=== PATIENT | female | born 1965 | race Caucasian/White ===

== ENCOUNTER 2023-03-01 10:53 | Outpatient (AMB) | payer OTHER, SELFPAY ==
[2023-03-01 10:56] VITALS: BP 136/82; PULSE 96; RESP 18; TEMP 35.9; O2SAT 96; BMI 45.4
--- NOTE | 2023-03-01 10:56 | MHC.OFFVIS ---
Intake Vital Signs 03/01/23 10:56 Height 5 ft 4 in Weight 264 lb 5.348 oz BMI 45.4 BP 136/82 Blood Pressure Location Lt brachial Position Sitting Respiration 18 Pulse 96 Pulse Source Pulse Oximeter Temp 96.6 F L Temp Source Skin Pulse Oximetry (%) 96 Oxygen Delivery Method Room Air Intake Visit Reasons: Osteoarthritis It Application Development Manager Required: No Allergies chloramphenicol Adverse Reaction (Unknown, Verified 03/01/23 11:02) Swelling meperidine [From Demerol] Adverse Reaction (Unknown, Verified 03/01/23 11:02) Fever Penicillins Adverse Reaction (Unknown, Verified 03/01/23 11:02) Rash sulfamethoxazole [From Bactrim] Adverse Reaction (Unknown, Verified 03/01/23 11:02) Anaphylaxis trimethoprim [From Bactrim] Adverse Reaction (Unknown, Verified 03/01/23 11:02) Anaphylaxis Medication List - Last Reconciled 03/01/23 by Maria Teresa Joya RN albuterol sulfate 90 mcg/actuation 2 puffs inhalation QID PRN atorvastatin 20 mg PO DAILY clobetasol 0.05% 1 appl topical BID lisinopril 10 mg PO DAILY HPI HPI Comments History of Present Illness Details The patient presents for evaluation of a positive JORGE ALBERTO. In June of last year she developed some pain and redness in the right eye. This was eventually diagnosed as episcleritis. Topical corticosteroid drops were administered and the symptoms subsided. There was concern about a rheumatic disease that could be accompany the episcleritis. I had seen her in the past and she had occasional injections for lateral epicondylitis. She also had some painful swelling in the right knee with non inflammatory fluid and MRI and radiographic findings suggesting early osteoarthritis. The right knee is painful when she stands or walks quite a long time but only occasionally swells. She takes ibuprofen for it [id number], perhaps 200-400 mg a day. In the past few months there has been some stiffness in the fingers noted in the morning as well as occasional pain in the shoulders. These are not bad enough to require any medication. In the last year she has also developed a slightly itchy eruption on the skin. This has been over the MCPs, between the fingers, patches on the elbows, and in the ear canal. She did see Dermatology and it is getting better with clobetasol. She says a biopsy was done and it was equivocal as to whether it was psoriasis or eczema. [facility] Medical History JORGE ALBERTO positive Hypercholesteremia Hypertension Lateral epicondylitis of elbow Primary osteoarthritis of both knees Surgical History H/O mammogram Hx of cholecystectomy S/P right knee arthroscopy Family History Mother Diabetes Hypertension Multiple sclerosis Glaucoma Maternal Grandmother Diabetes Coronary artery disease Paternal Grandmother Diabetes Social History Alcohol intake: current Alcohol intake frequency: a few times a week Alcohol type: wine Patient Tobacco Use Status: Former Tobacco user Quit Date: 1998 Review of Systems Const Details: Negative for appetite change, weight change, fever, chills, malaise and fatigue Eyes Details: Episode of episcleritis on the right as noted above. Negative for vision change, dry eyes,headaches and dizziness ENT Details: Negative for hearing change, tinnitus, oral ulcer, nose bleeds and oral dryness. Card Details: Negative chest pain, edema and syncope Resp Details: She has a history of asthma sometimes accompany a URI but has not needed albuterol inhaler in quite some time. Presently negative for SOB, cough and wheezing GI Details: Negative indigestion/heartburn, nausea, abdominal pain, bowel changes, diarrhea, constipation and bloody stool. Details: Negative for dysuria, hematuria, nocturia, decreased force/flow and genital discharge Skin/Breast Details: Patches of itchy skin as noted above. Negative for hives, Raynaud's symptoms, sun sensitivity, and skin cancer Neuro Details: Negative for epilepsy, palsy, stroke, changes in speech, tingling and weakness Psych Details: Negative for anxiety, depression and stress Endo Details: Negative for polyuria and polydypsia Emile/Lymph Details: Negative for excessive bruising or bleeding. Physical Exam Vital Signs: Last Vital Signs Temp 96.6 F L 03/01/23 10:56 Pulse 96 03/01/23 10:56 Resp 18 03/01/23 10:56 BP 136/82 03/01/23 10:56 Pulse Ox 96 03/01/23 10:56 Oxygen Delivery Method Room Air 03/01/23 10:56 BMI result Body Mass Index 45.4 APPEARANCE: Patient in no acute distress EYES no redness, pupils equal and reactive to light, eyelids normal. No temporal artery tenderness, redness or swelling. EARS: External ear normal, canal clear and tympanic membrane normal. No sinus tenderness. NOSE/SINUS: Airflow through both nares, no nasal discharge, no bleeding THROAT: Oral mucosa moist, no ulcerations NECK: No thyromegaly or masses, no adenopathy, trachea midline. HEART: Regulrar rhythm, S1-S2 heard, no murmurs, rubs or gallops. LUNG: Clear to percussion and auscultation ABD: Normal bowel sounds, no organomegaly, masses or tenderness. EXTREMITIES: No edema, no calf tenderness, normal peripheral pulses. NEURO: Oriented and alert x3. No focal weakness. Reflexes symmetric. Gait normal. SKIN: There are a few excoriated patches of skin on the olecranon areas. This some dryness and flaking between the fingers in the hands around the MCP joint. There are no facial lesions. Elsewhere no inflammatory or neoplastic lesions. She has some ridging of the nails but no subungual deposits, abnormal cuticles, or pitting of the nails. JOINT EXAM:?? Cervical Spine:? Full range of motion without pain; no tenderness. Thoracic Spine:? No scoliosis.? No tenderness on palpation. Lumbar Spine:.? Alignment normal.? Full range of motion with slight discomfort at the extremes of motion. No tenderness. Chest Wall:? No tenderness, swelling, increased warmth or erythema. Hands: Left: Normal pain-free range of motion. There is some nodularity to the dorsum of the 2nd PIP. This is not tender however. Other joints are without tenderness, swelling, increased warmth or erythema. No thenar atrophy or sensory loss. Right: Normal pain-free range of motion. No areas of tenderness or swelling. No thenar atrophy or sensory loss. Wrists:.? Normal pain-free range of motion without tenderness, swelling, increased warmth or erythema. Elbows:. Normal pain-free range of motion without tenderness, swelling, increased warmth or erythema. Shoulders:.?? Full range of motion without pain. No tenderness, weakness, swelling, increased warmth or erythema. Hips:.? Full range of motion without pain. Hip bursa:.? No tenderness. Knees:.?? Right: Normal pain-free range of motion with some minimal medial compartment tenderness but no effusion, redness or warmth. There is some mild patellofemoral crepitus. Left: Normal pain-free range of motion without tenderness, swelling, increased warmth or erythema.? There is no effusion or crepitation Ankles:.? Normal pain-free range of motion without tenderness, swelling, increased warmth or erythema. Feet:.? Normal pain-free range of motion. There is some mild bony enlargement at the 1st MTP joints. These are not tender. No other areas of tenderness, swelling, increased warmth or erythema. Tender points:.? No tenderness to digital palpation at the occiput, trapezius, second rib, lateral epicondyle, knees, greater trochanter and gluteal area bilaterally. ? Results Reviewed Results Reviewed: Lab work from [place]: 02/20/2023: ESR 48, Lyme disease antibody negative, transaminases normal, creatinine 0.83, JORGE ALBERTO positive at 1:320, nucleolar pattern, rheumatoid factor negative Assessment & Plan Assessment & Plan (1) Primary osteoarthritis of both knees: Code(s): M17.0 - Bilateral primary osteoarthritis of knee (2) Episcleritis: Code(s): H15.109 - Unspecified episcleritis, unspecified eye (3) JORGE ALBERTO positive: Code(s): R76.8 - Other specified abnormal immunological findings in serum Plan The patient has had an episode of self-limited episcleritis in one eye. She is JORGE ALBERTO positive which raises the question of an autoimmune disorder. Around the time of this inflammation her sed rate was elevated. Since then, now almost 7 months out she has had no further episodes. She has a few arthralgias in the hands possibly related to early interphalangeal joint OA. She has known OA in the right knee. So far exam and symptoms do not suggest an underlying rheumatic disease. She does have the skin lesions which could be psoriasis. Psoriasis could be related to inflammatory eye disease. I will check into the JORGE ALBERTO with more specific blood work for lupus and also check ANCA for question of vasculitis. We will repeat the acute phase reactants. I will get back to her with the results of her studies but most likely just tell her to return if her of joint symptoms change in the future. Orders: Orders C Reactive Protein Today R76.8 - Other specified abnormal immunological findings in serum Protein Creatinine Ratio, Ur Today R76.8 - Other specified abnormal immunological findings in serum Complete Blood Count Auto Diff Today R76.8 - Other specified abnormal immunological findings in serum Erythrocyte Sedimentation Rate Today R76.8 - Other specified abnormal immunological findings in serum ANCA Vasculitides Today R76.8 - Other specified abnormal immunological findings in serum Anti DNA DS Antibody Today R76.8 - Other specified abnormal immunological findings in serum Anti Extractable Nuclear Ag Today R76.8 - Other specified abnormal immunological findings in serum Coding Level of Care Code New Pt Level 3 (65826) Diagnoses Primary osteoarthritis of both knees M17.0 Episcleritis H15.109 JORGE ALBERTO positive R76.8
== END 2023-03-01 11:53 | disposition home or self-care (01) ==
PROVIDERS: PCP Internal Medicine; Visit Provider Internal Medicine Rheumatology
DX: M17.0 Bilateral primary osteoarthritis of knee (principal); H15.109 Unspecified episcleritis, unspecified eye; R76.8 Other specified abnormal immunological findings in serum
CPT/HCPCS: 99203

== ENCOUNTER → 2023-03-01 10:53 | Outpatient (BNVA) | payer SELFPAY | PROVIDERS: Visit Provider Internal Medicine Rheumatology ==

== ENCOUNTER 2023-03-01 11:56 | Outpatient (REF) | payer OTHER, SELFPAY ==
[2023-03-01 13:30] LABS: MANUAL DIFF FLAG NO
[2023-03-01 13:39] LABS: Basophils Percent Auto 0.4 % (0-2); Eosinophils Absolute Auto 1.1 X10*3/uL (0.0-0.4); Eosinophils Percent Auto 11.1 % (0-4); Hematocrit 43.4 % (37.0-47.0); Hemoglobin 15.1 g/dl (12.0-16.0); Imm Gran Abs Auto 0.05 X10*3/uL (0.00-0.03); Imm Gran Pct Auto 0.5 % (0.0-0.4); Lymphocytes Absolute Auto 2.4 X10*3/uL (1.2-4.9); Lymphocytes Percent Auto 23.4 % (20-40); Mean Corpuscular HGB Conc 34.8 g/dl (31.0-35.0); Mean Corpuscular Volume 91.9 fL (80.0-98.0); Monocytes Absolute Auto 0.6 X10*3/uL (0.1-1.2); Monocytes Percent Auto 6.3 % (2-11); Neutrophils Percent Auto 58.3 % (45-73); Platelet Count 301 X10*3/uL (160-400); Red Blood Count 4.72 X10*6/uL (4.20-5.50); Red Cell Distribution Width 13.1 % (11.0-16.0); White Blood Count 10.2 X10*3/uL (4.8-10.8)
[2023-03-01 13:47] LABS: C Reactive Protein 2.41 mg/dL (< or = 0.50)
[2023-03-01 14:19] LABS: Erythrocyte Sedimentation Rate 22 MM/HR (0-20)
[2023-03-01 14:51] LABS: Creatinine Urine 57.42 mg/dL; Total Protein Urine Random < 7 mg/dL (<12)
[2023-03-03 11:29] LABS: Anti DNA DS Antibody <1 IU/mL; Myeloperoxidase Antibody <1.0 AI; Proteinase 3 PR3 Antibodies <1.0 AI; SM/Ribonucleoprotein Ab <1.0 NEG AI (<1.0 NEG); Smith Protein <1.0 NEG AI (<1.0 NEG)
== END 2023-03-01 11:57 | disposition home or self-care (01) ==
LOC: HO.10HDL 11:56
PROVIDERS: Visit Provider Internal Medicine Rheumatology
DX: R76.8 Other specified abnormal immunological findings in serum (principal)
CPT/HCPCS: 36415; 84156; 85025; 85652; 86021; 86140; 86225; 86235

== ENCOUNTER 2023-06-26 13:37 | Outpatient (AMB) | payer OTHER, SELFPAY ==
[2023-06-26 13:38] VITALS: BP 137/80; PULSE 99; TEMP 36.1; O2SAT 96; BMI 48.2
--- NOTE | 2023-06-26 13:38 | A.OFFVIS_ITS ---
Intake Vital Signs 06/26/23 13:38 Height 5 ft 4 in Weight 280 lb 10.375 oz BMI 48.2 BP 137/80 Blood Pressure Location Rt radial Pulse 99 Pulse Source Pulse Oximeter Temp 97 F Temp Source Skin Pulse Oximetry (%) 96 Oxygen Delivery Method Room Air Intake Visit Reasons: Positive antinuclear antibody Intake Note: Patient presents today to follow up on op joint pains. Last seen by Dr. Crowe 03/01/23. Allergies chloramphenicol Adverse Reaction (Unknown, Verified 06/26/23 13:44) Swelling meperidine [From Demerol] Adverse Reaction (Unknown, Verified 06/26/23 13:44) Fever Penicillins Adverse Reaction (Unknown, Verified 06/26/23 13:44) Rash sulfamethoxazole [From Bactrim] Adverse Reaction (Unknown, Verified 06/26/23 13:44) Anaphylaxis trimethoprim [From Bactrim] Adverse Reaction (Unknown, Verified 06/26/23 13:44) Anaphylaxis Medication List - Last Reconciled 06/26/23 by Adrián Crowe MD albuterol sulfate 90 mcg/actuation 2 puffs inhalation QID PRN atorvastatin 20 mg PO DAILY clobetasol 0.05% 1 appl topical BID lisinopril 10 mg PO DAILY loteprednol etabonate 0.5% (Lotemax) ophthalmic (eye) PRN HPI HPI Comments History of Present Illness Details The patient returns for evaluation of her elevated CRP in the face of an episode of episcleritis about a year ago. She has had no return of those symptoms. She says what was most helpful was a corticosteroid topically used for her eyelids given by the line camera operator. She does not seem to have any further episodes of redness or pain in the eye. She does have some right knee pain, attributed to osteoarthritis. This knee pain is worse with more standing and walking. I had given her previous corticosteroid injections in that region, the last was about 2 years ago. Occasionally with extra physical activity the knee does swell. She does take ibuprofen for this, usually about 400 mg 2 to 3 times a day with some benefit. There are no apparent side effects with it. She occasionally has some skin rashes elsewhere thought to be eczema. [facility] Medical History JORGE ALBERTO positive Hypercholesteremia Hypertension Lateral epicondylitis of elbow Primary osteoarthritis of both knees Surgical History S/P right knee arthroscopy H/O mammogram Hx of cholecystectomy Family History Mother Diabetes Hypertension Multiple sclerosis Glaucoma Maternal Grandmother Diabetes Coronary artery disease Paternal Grandmother Diabetes Social History Alcohol intake: current Alcohol intake frequency: a few times a week Alcohol type: wine Patient Tobacco Use Status: Former Tobacco user Quit Date: 1998 Review of Systems Const Details: Negative for appetite change, weight change, fever, chills, malaise and fatigue Eyes Details: Negative for vision change, dry eyes,headaches and dizziness ENT Details: Negative for hearing change, tinnitus, oral ulcer, nose bleeds and oral dryness. Card Details: Negative chest pain, edema and syncope Resp Details: Asthma symptoms seem control with current regimen. Negative for SOB, cough and wheezing GI Details: Negative indigestion/heartburn, nausea, abdominal pain, bowel changes, diarrhea, constipation and bloody stool. Emile/Lymph Details: Negative for excessive bruising or bleeding. Physical Exam Vital Signs: Last Vital Signs Temp 97 F 06/26/23 13:38 Pulse 99 06/26/23 13:38 BP 137/80 06/26/23 13:38 Pulse Ox 96 06/26/23 13:38 Oxygen Delivery Method Room Air 06/26/23 13:38 BMI result Body Mass Index 48.2 APPEARANCE: Patient in no acute distress EYES no redness, pupils equal and reactive to light, eyelids normal NOSE/SINUS: Airflow through both nares, no nasal discharge, no bleeding THROAT: Oral mucosa moist, no ulcerations NECK: No thyromegaly or masses, no adenopathy, trachea midline. HEART: Regulrar rhythm, S1-S2 heard, no murmurs, rubs or gallops. LUNG: Clear to percussion and auscultation ABD: Normal bowel sounds, no organomegaly, masses or tenderness. EXTREMITIES: No edema, no calf tenderness, normal peripheral pulses. SKIN: No inflammatory or neoplastic lesions. Normal color and turgor JOINT EXAM:?? Cervical Spine:? Full range of motion without pain; no tenderness. Thoracic Spine:? No scoliosis.? No tenderness on palpation. Lumbar Spine:.? Alignment normal.? Full range of motion with slight discomfort at the extremes of motion. No tenderness. Chest Wall:? No tenderness, swelling, increased warmth or erythema. Hands: Right: Normal pain-free range of motion. There is some firm nodularity to the dorsum of the 2nd PIP and the thumb IP joints. These areas are not tender however. Other joints are without tenderness, swelling, increased warmth or erythema. No thenar atrophy or sensory loss. Left: Normal pain-free range of motion. There is a suggestion of nontender bony enlargement at the PIP joints and the IP of the thumb. No triggering, soft tissue swelling, thenar atrophy or sensory loss. Wrists:.? Normal pain-free range of motion without tenderness, swelling, increased warmth or erythema. Elbows:. Normal pain-free range of motion without tenderness, swelling, increased warmth or erythema. Shoulders:.?? Full range of motion without pain. No tenderness, weakness, swelling, increased warmth or erythema. Hips:.? Full range of motion without pain. Hip bursa:.? No tenderness. Knees:.?? Right: Mild pain with extremes of flexion or extension. This pain is felt over the medial compartment. There is mild medial tenderness but no effusion, redness or warmth. There is some mild patellofemoral crepitus. Left: Normal pain-free range of motion without tenderness, swelling, increased warmth or erythema.? There is no effusion or crepitation Ankles:.? Normal pain-free range of motion without tenderness, swelling, inc reased warmth or erythema. Feet:.? Normal pain-free range of motion. There is some mild bony enlargement at the 1st MTP joints. These are not tender. No other areas of tenderness, swelling, increased warmth or erythema. Tender points:? No tenderness to digital palpation at the occiput, trapezius, second rib, lateral epicondyle, knees, greater trochanter and gluteal area bilaterally. Results Reviewed Results Reviewed: Laboratory Tests 03/01/23 12:00 Hgb 15.1 C-Reactive Protein 2.41 H U Random Total Protein < 7 Proteinase 3 (PR3) Ab <1.0 Myeloperoxidase Ab <1.0 Sm (Martinez) Antibody <1.0 NEG SM/SOLDERING MACHINE OPERATOR AUTOMATIC IgG Antibody <1.0 NEG Double Strand DNA Ab <1 [facility] Result Report 0 Patient: Mckenna Hathaway Date of Service: 05/27/18 ? ? Patient Gender: Female Ordering Provider: Lenny Martinez : 09/28/1960 ? ? ? Final MRI OF HIPS/KNEES/ANKLE JOINTS NO CONTRAST Exam Date: 05/27/2018 2:40 PM Ordering Diagnosis: Chronic pain of right knee ? History: Chronic right knee pain. ? Right knee MRI: A departmental standard knee MRI protocol was used. ? FINDINGS: The menisci, ACL, PCL and collateral ligaments are intact. There is some mild thinning and minimal irregularity of the medial compartment articular surfaces. Lateral compartment articular surfaces are intact. There is severe patellofemoral degeneration with near complete loss of the patellar articular surface with subchondral sclerosis and irregularity. There is some minimal underlying bone edema. ? There is a proximally 5 mm ossified structure at the posterior medial margin of the medial compartment either immediately adjacent to or arising from the posterior margin of the medial tibial plateau. It is posterior to the posterior horn the medial meniscus at its lateral aspect. It appears to deviate the inferior meniscal fascicles superiorly. This may represent a developmental variant, a small exostosis, degenerative spur or less likely a loose body. ? There is a multiloculated Jacobs's cyst measuring 4.2 x 2.8 x 2.1 cm. There is no evidence of leakage or rupture. ? IMPRESSION IMPRESSION: Severe patellofemoral compartment degeneration. Mild medial compartment degeneration. Jacobs's cyst, without evidence of rupture or leakage. Small posterior medial ossified structure as discussed above. ? Reading Radiologist: Assessment & Plan Assessment & Plan (1) Primary osteoarthritis of both knees: Code(s): M17.0 - Bilateral primary osteoarthritis of knee (2) Episcleritis: Comment: 06/2022: Treated with topical steroids with improvement. No associated rheumatic disease apparent. Code(s): H15.109 - Unspecified episcleritis, unspecified eye (3) JORGE ALBERTO positive: Code(s): R76.8 - Other specified abnormal immunological findings in serum (4) CRP elevated: Code(s): R79.82 - Elevated C-reactive protein (CRP) Plan She has had no recent episodes of the episcleritis. Workup of the JORGE ALBERTO did not show other serologies that were positive to suggest a systemic rheumatic disease. However the ESR was minimally elevated in the CRP was elevated when last checked. We will recheck those values today. She is more symptomatic currently in the right knee where she has OA. We reviewed potential adverse effects that could occur with corticosteroid injections. With the patient's consent the right knee was prepped with ChloraPrep and alcohol. The skin was anesthetized with 2 cc of 1% lidocaine. The knee was then injected with 40 mg of triamcinolone and 1 cc of I % lidocaine. The patient tolerated the procedure with no immediate adverse effects. She will see how this works out over the next few weeks. I did tell her that if symptoms do not improve with this corticosteroid injection the next step would be to plan some physical therapy. I do not think at this point she needs to schedule a return Rheumatology appointment but can certainly call us if she thinks inflammatory joint disease is developing. Orders: Orders AMB Joint Injection/Aspiration Today M17.0 - Bilateral primary osteoarthritis of knee Erythrocyte Sedimentation Rate Today R79.82 - Elevated C-reactive protein (CRP) C Reactive Protein Today R79.82 - Elevated C-reactive protein (CRP) Coding Level of Care Code Est Pt Level 3 (94142) Diagnoses Primary osteoarthritis of both knees M17.0 Episcleritis H15.109 JORGE ALBERTO positive R76.8 CRP elevated R79.82
== END 2023-06-26 14:14 | disposition home or self-care (01) ==
PROVIDERS: Visit Provider Internal Medicine Rheumatology
DX: M17.0 Bilateral primary osteoarthritis of knee (principal); H15.109 Unspecified episcleritis, unspecified eye; R76.8 Other specified abnormal immunological findings in serum; R79.82 Elevated C-reactive protein (CRP)
CPT/HCPCS: 99213

== ENCOUNTER → 2023-06-26 13:37 | Outpatient (BNVA) | payer OTHER, SELFPAY | PROVIDERS: Visit Provider Internal Medicine Rheumatology ==